=== PATIENT | male | born 1955 | race Caucasian/White ===

== ENCOUNTER 2022-11-25 18:11 | Inpatient (IN) | payer MEDICARE, BC ==
[2022-11-25] MEDS ORDERED: Morphine 4 MG/ML VIAL SLOW IVP PRN ×2 (20:26→20:37)
[2022-11-25] MEDS ORDERED: Dextrose 50% Abboject 50 ML SYRINGE SLOW IVP PRN (20:26)
[2022-11-25] MEDS ORDERED: Ipratropium/Albuterol 3 ML NEB NEB PRN (20:26)
[2022-11-25] MEDS ORDERED: Ondansetron ODT 4 MG TAB PO PRN (20:26)
[2022-11-25] MEDS ORDERED: hydrALAZINE 20 MG/ML VIAL SLOW IVP PRN (20:26)
[2022-11-25] MEDS ORDERED: Dextrose 5% in Water 1,000 ML IV PRN (20:26)
[2022-11-25] MEDS ORDERED: Ondansetron PF 4 MG/2 ML Vial IVP PRN (20:26)
[2022-11-25] MEDS ORDERED: Cyclobenzaprine 10 MG TAB PO PRN (20:29)
[2022-11-25] MEDS ORDERED: traMADol HCl 50 MG TAB PO PRN (20:29)
[2022-11-25] MEDS ORDERED: Sodium Chloride 0.9% 1,000 ML IV SCH (20:30)
[2022-11-25] MEDS ORDERED: Ibuprofen 200 MG TAB PO PRN (20:36)
[2022-11-25] MEDS: Acetaminophen 500 MG TAB PO SCH (21:11)
[2022-11-25] MEDS: Famotidine 20 MG TAB PO SCH (21:11)
[2022-11-25] MEDS: traMADol HCl 50 MG TAB PO SCH (21:11)
[2022-11-25] MEDS: Senokot S 8.6-50 MG TAB PO SCH (21:12)
[2022-11-25 21:14] VITALS: BMI 32.6
[2022-11-25 21:18] LABS: SARS-CoV-2 NAA Rapid Test Not Detected (NotDetected)
[2022-11-26] MEDS: Acetaminophen 500 MG TAB PO SCH ×2 (04:28→10:26)
[2022-11-26] MEDS: traMADol HCl 50 MG TAB PO SCH ×3 (04:28→23:48)
[2022-11-26 05:58] LABS: #Basophils 0.1 thou/uL (0.0-0.2); #Eosinphils 0.4 thou/uL (0.0-0.7); #Lymphocytes 2.4 thou/uL (1.20-3.40); #Neutrophils 4.7 thou/uL (1.40-6.50); %Eosinophils 4.3 % (0.0-10.0); %Lymphocytes 28.5 % (21.0-51.0); %Monocytes 11.4 % (0.0-10.0); %Neutrophils 54.8 % (42.0-75.0); Hemoglobin 15.8 g/dL (14.0-18.0); Mean Corpuscular HGB CONC 33.3 g/dL (32.0-36.0); Mean Corpuscular Hemoglobin 30.6 pg (27.0-31.0); Mean Corpuscular Volume 91.8 fl (78.0-98.0); Mean Platelet Volume 9.6 fL (7.4-10.4); Platelet Count 196 10x3/uL (130-400); Red Blood Cell (RBC) Count 5.17 mill/uL (4.70-6.10); White Blood Cell (WBC) Count 8.5 10x3/uL (4.8-10.8)
[2022-11-26 06:17] LABS: Phosphorus 3.1 mg/dL (2.3-4.7)
[2022-11-26 06:18] LABS: Anion Gap 10 mmol/L (10-20); BUN (Urea Nitrogen) 17 mg/dL (8.4-25.7); Calc. Creatinine Clearance 120 mL/min (70-130); Calcium 8.2 mg/dL (7.8-10.44); Carbon Dioxide 24 mmol/L (23-31); Chloride 108 mmol/L (98-107); Estimated GFR 92; Glucose 102 mg/dL (80-115); Magnesium 2.1 mg/dL (1.6-2.6); Potassium 3.3 mmol/L (3.5-5.1); Sodium 139 mmol/L (136-145)
[2022-11-26] MEDS ORDERED: CEFAZOLIN 2 GM in Sodium Chloride 0.9% 100 ML IVPB SCH (07:45)
[2022-11-26] MEDS ORDERED: Potassium Phosphate 30 MMOL in Sodium Chloride 0.9% 250 ML 250 ML IVPB SCH (09:15)
[2022-11-26] MEDS: Polyethylene Glycol 3350 17 GM Packet PO SCH (10:26)
[2022-11-26] MEDS: Famotidine 20 MG TAB PO SCH ×2 (10:26→19:59)
[2022-11-26] MEDS: Senokot S 8.6-50 MG TAB PO SCH ×2 (10:26→19:59)
[2022-11-26] MEDS ORDERED: Midazolam HCl 2 mg/2 ml Vial ONE (10:29)
[2022-11-26] MEDS ORDERED: Fentanyl 100 MCG/2 ML VIAL ONE (10:29)
[2022-11-26] MEDS ORDERED: Bupivacaine PF 0.5% 30 ML VIAL ONE (10:30)
[2022-11-26] MEDS ORDERED: Fentanyl 250 MCG/5 ML VIAL ONE (11:24)
[2022-11-26] MEDS ORDERED: Sodium Chloride 0.9% 100 ML ONE (11:36)
[2022-11-26] MEDS ORDERED: CEFAZOLIN 2 GM VIAL ONE (11:36)
[2022-11-26] MEDS ORDERED: PROPOFOL 200 MG/20 ML VIAL ONE (12:02)
[2022-11-26] MEDS ORDERED: Dexamethasone 20 MG/5 ML VIAL ONE (12:02)
[2022-11-26] MEDS ORDERED: Ondansetron PF 4 MG/2 ML Vial ONE (12:02)
[2022-11-26] MEDS ORDERED: Bupivacaine HCl 0.5%/Epinephrine 1:200,000/PF 30 ml Vial ONE (12:02)
[2022-11-26] MEDS ORDERED: Ondansetron PF 4 MG/2 ML Vial IVP PRN (12:15)
[2022-11-26] MEDS ORDERED: traMADol HCl 50 MG TAB PO PRN ×3 (12:15→15:37)
[2022-11-26] MEDS ORDERED: Zolpidem Tartrate 5 MG TAB PO PRN (12:15)
[2022-11-26] MEDS ORDERED: Ropivacaine 0.2% 550 ML 550 ML NERVE BLCK SCH (12:15)
[2022-11-26] MEDS ORDERED: HYDROcodone/Acetaminophen 10/325 mg Tablet PO PRN ×2 (12:15)
[2022-11-26] MEDS ORDERED: Fentanyl 100 MCG/2 ML VIAL SLOW IVP PRN (12:15)
[2022-11-26] MEDS ORDERED: Promethazine HCl 25 MG/ML VIAL IM PRN (12:15)
[2022-11-26] MEDS ORDERED: Meperidine HCl/PF 25 MG/ML VIAL ONE (13:15)
[2022-11-26] MEDS ORDERED: hydrALAZINE 20 MG/ML VIAL ONE (13:52)
[2022-11-26] MEDS ORDERED: Morphine 4 MG/ML VIAL SLOW IVP PRN (15:37)
[2022-11-26] MEDS ORDERED: traMADol HCl 50 MG TAB PO SCH (16:00)
[2022-11-26] MEDS: Ketorolac Tromethamine 30 MG/ML VIAL IVP SCH ×2 (18:41→23:48)
[2022-11-26] MEDS: CEFAZOLIN 2 GM in Sodium Chloride 0.9% 100 ML IVPB SCH (19:59)
[2022-11-26] MEDS ORDERED: Tamsulosin HCl 0.4 MG CAP PO SCH (21:00)
[2022-11-27] MEDS: CEFAZOLIN 2 GM in Sodium Chloride 0.9% 100 ML IVPB SCH (03:29)
[2022-11-27] MEDS: traMADol HCl 50 MG TAB PO SCH ×2 (05:26→11:04)
[2022-11-27] MEDS: Ketorolac Tromethamine 30 MG/ML VIAL IVP SCH ×2 (05:26→11:04)
[2022-11-27 06:09] LABS: #Lymphocytes 1.6 thou/uL (1.20-3.40); #Monocytes 1.1 thou/uL (0.11-0.59); #Neutrophils 11.6 thou/uL (1.40-6.50); %Basophils 0.1 % (0.0-1.0); %Eosinophils 0.2 % (0.0-10.0); %Lymphocytes 11.5 % (21.0-51.0); %Monocytes 7.5 % (0.0-10.0); %Neutrophils 80.8 % (42.0-75.0); Hemoglobin 15.6 g/dL (14.0-18.0); Mean Corpuscular HGB CONC 33.2 g/dL (32.0-36.0); Mean Corpuscular Hemoglobin 30.6 pg (27.0-31.0); Mean Corpuscular Volume 92.3 fl (78.0-98.0); Mean Platelet Volume 9.4 fL (7.4-10.4); Platelet Count 194 10x3/uL (130-400); RBC Distribution Width 12.9 % (11.5-14.5); Red Blood Cell (RBC) Count 5.11 mill/uL (4.70-6.10); White Blood Cell (WBC) Count 14.3 10x3/uL (4.8-10.8)
[2022-11-27 06:49] LABS: Anion Gap 11 mmol/L (10-20); BUN (Urea Nitrogen) 17 mg/dL (8.4-25.7); Calc. Creatinine Clearance 127 mL/min (70-130); Calcium 8.4 mg/dL (7.8-10.44); Carbon Dioxide 21 mmol/L (23-31); Chloride 108 mmol/L (98-107); Estimated GFR 94; Glucose 148 mg/dL (80-115); Magnesium 2.2 mg/dL (1.6-2.6); Phosphorus 2.4 mg/dL (2.3-4.7); Potassium 4.1 mmol/L (3.5-5.1); Sodium 136 mmol/L (136-145)
[2022-11-27] MEDS: Famotidine 20 MG TAB PO SCH (09:01)
[2022-11-27] MEDS: Senokot S 8.6-50 MG TAB PO SCH (09:02)
[2022-11-27] MEDS: Polyethylene Glycol 3350 17 GM Packet PO SCH (09:03)
[2022-11-27] MEDS ORDERED: PHOS-NAK 1 PKT PACK PO SCH (09:15)
[2022-11-27 12:36] VITALS: BP 115/71; TEMP 97.7
== END 2022-11-27 13:18 | disposition home or self-care (01) | DRG 494 ==
LOC: SJJU 18:53
PROVIDERS: ADMIT Orthopaedic Surgery; ATTEND Surgery
PROC: 0QSG04Z Reposition Right Tibia with Internal Fixation Device, Open Approach (ICD-10-PCS; principal; 2022-11-26)
DX: S82.851A Displaced trimalleolar fracture of right lower leg, initial encounter for closed fracture (principal); Z20.822 Contact with and (suspected) exposure to COVID-19; I10 Essential (primary) hypertension; F17.210 Nicotine dependence, cigarettes, uncomplicated; W18.39XA Other fall on same level, initial encounter; N40.1 Benign prostatic hyperplasia with lower urinary tract symptoms; R33.8 Other retention of urine; Z91.041 Radiographic dye allergy status; Z79.899 Other long term (current) drug therapy
CPT/HCPCS: 36415; 80048; 83735; 84100; 85025; A4306; C1713; G0390; J0360; J1100; J1650; J2175; J2250; J2405; J2704; J2795; J3010; J3490; J7050; S0020; U0002

== ENCOUNTER 2023-09-21 14:00 | Inpatient (IN) | payer MEDICARE, BC ==
[2023-09-21 14:34] VITALS: BMI 32.0
[2023-09-21 14:49] LABS: Hematocrit 54.2 % (38.8-50.0); Hemoglobin 18.7 g/dL (13.5-17.5); Mean Corpuscular HGB CONC 34.5 g/dL (32.0-36.0); Mean Corpuscular Hemoglobin 30.4 pg (27.0-33.0); Mean Platelet Volume 11.3 fl (7.4-10.4); Platelet Count 209 10x3/uL (150-450); RBC Distribution Width 14.1 % (11.5-14.5); Red Blood Cell (RBC) Count 6.16 10x6/uL (4.32-5.72); White Blood Cell (WBC) Count 7.9 10x3/uL (3.5-10.5)
[2023-09-21 15:07] LABS: Anion Gap 16 mmol/L (10-20); BUN (Urea Nitrogen) 14 mg/dL (8.4-25.7); Calc. Creatinine Clearance 0 mL/min (70-130); Carbon Dioxide 21 mmol/L (23-31); Chloride 107 mmol/L (98-107); Estimated GFR 91; Glucose 99 mg/dL (80-115); Potassium 3.5 mmol/L (3.5-5.1); Sodium 140 mmol/L (136-145)
[2023-09-23] MEDS ORDERED: predniSONE 50 MG TAB PO SCH (08:15)
[2023-09-23] MEDS ORDERED: diphenhydrAMINE 50 MG CAP PO SCH (08:15)
[2023-09-23] MEDS ORDERED: Dexamethasone 4 mg/ml Vial ONE (08:19)
[2023-09-23] MEDS ORDERED: EPINEPHrine 1 MG/ML VIAL ONE (08:19)
[2023-09-23] MEDS ORDERED: Heparin 10,000 UNITS/ 10 ML VIAL ONE (08:19)
[2023-09-23] MEDS ORDERED: Protamine Sulfate 50 MG/5 ML VIAL ONE ×2 (08:19→10:47)
[2023-09-23] MEDS ORDERED: Bupivacaine PF 0.5% 30 ML VIAL ONE (08:20)
[2023-09-23] MEDS ORDERED: Lidocaine 2% PF 5 ML VIAL ONE (08:34)
[2023-09-23] MEDS ORDERED: Sodium Chloride 0.9% 100 ML ONE (08:36)
[2023-09-23] MEDS ORDERED: CEFAZOLIN 2 GM VIAL ONE (08:36)
[2023-09-23] MEDS ORDERED: fentaNYL PF 100 MCG/2 ML SYRINGE ONE (08:48)
[2023-09-23] MEDS ORDERED: Phenylephrine 40 MG/NS 250 ML 250 ML ONE (08:49)
[2023-09-23] MEDS ORDERED: Glycopyrrolate 0.2 MG/ML 5 ML SYRINGE ONE (09:12)
[2023-09-23] MEDS ORDERED: PROPOFOL 200 MG/20 ML VIAL ONE (09:12)
[2023-09-23] MEDS ORDERED: NEOSTIGMINE 3 MG/3 ML SYR 3 MG/3 ML SYRINGE ONE (09:12)
[2023-09-23] MEDS ORDERED: Rocuronium Bromide 10 MG/ML (10ML VIAL) ONE (09:12)
[2023-09-23] MEDS ORDERED: Lidocaine 1% PF 5 ML VIAL ONE (09:12)
[2023-09-23] MEDS ORDERED: Dexamethasone 20 MG/5 ML VIAL ONE (09:12)
[2023-09-23] MEDS ORDERED: Ondansetron HCl/PF 4 MG/2 ML Vial IVP PRN (10:45)
[2023-09-23] MEDS ORDERED: PACU-Morphine 4MG/ML VIAL SLOW IVP PRN (10:45)
[2023-09-23] MEDS ORDERED: HYDROmorphone 2 MG/ML VIAL SLOW IVP PRN (10:45)
[2023-09-23] MEDS ORDERED: Promethazine HCl 25 MG/ML VIAL IM PRN (10:45)
[2023-09-23] MEDS ORDERED: fentaNYL 50 mcg/mL 1 mL Vial ONE (11:34)
[2023-09-23] MEDS ORDERED: hydrALAZINE 20 MG/ML VIAL ONE ×2 (11:35→16:31)
[2023-09-23] MEDS ORDERED: hydrALAZINE 20 MG/ML VIAL SLOW IVP PRN (11:55)
[2023-09-23] MEDS ORDERED: traMADol HCl 50 MG TAB PO PRN ×2 (11:55)
[2023-09-23] MEDS ORDERED: Ipratropium/Albuterol 3 ML NEB NEB PRN (11:55)
[2023-09-23] MEDS ORDERED: Acetaminophen 325 MG TAB PO PRN (11:55)
[2023-09-23] MEDS ORDERED: Ondansetron PF 4 MG/2 ML Vial IVP PRN (11:55)
[2023-09-23] MEDS: CEFAZOLIN 2 GM in Sodium Chloride 0.9% 100 ML IVPB SCH ×2 (16:58→22:59)
[2023-09-23] MEDS ORDERED: Tamsulosin HCl 0.4 MG CAP PO SCH (21:00)
[2023-09-24 07:01] LABS: Hematocrit 46.9 % (42.0-52.0); Hemoglobin 15.9 g/dL (14.0-18.0); Mean Corpuscular HGB CONC 33.9 g/dL (32.0-36.0); Mean Corpuscular Hemoglobin 30.5 pg (27.0-31.0); Red Blood Cell (RBC) Count 5.21 mill/uL (4.70-6.10); White Blood Cell (WBC) Count 12.8 10x3/uL (4.8-10.8)
[2023-09-24 07:02] LABS: #Monocytes 1.2 thou/uL (0.11-0.59); #Neutrophils 9.2 thou/uL (1.40-6.50); %Basophils 0.2 % (0.0-1.0); %Eosinophils 0.1 % (0.0-10.0); %Lymphocytes 18.1 % (21.0-51.0); %Monocytes 9.5 % (0.0-10.0); %Neutrophils 71.7 % (42.0-75.0); Mean Platelet Volume 11.6 fL (7.4-10.4); Platelet Count 210 10x3/uL (130-400); RBC Distribution Width 14.2 % (11.5-14.5)
[2023-09-24 07:14] VITALS: BP 123/64
[2023-09-24] MEDS ORDERED: Lisinopril 20 MG TAB PO SCH (07:30)
[2023-09-24] MEDS ORDERED: Hydrochlorothiazide 25 MG TAB PO SCH (07:30)
[2023-09-24 07:40] LABS: Anion Gap 14 mmol/L (10-20); BUN (Urea Nitrogen) 31 mg/dL (8.4-25.7); Calc. Creatinine Clearance 84 mL/min (70-130); Calcium 8.5 mg/dL (7.8-10.44); Carbon Dioxide 21 mmol/L (23-31); Chloride 108 mmol/L (98-107); Estimated GFR 63; Glucose 123 mg/dL (80-115); Potassium 3.3 mmol/L (3.5-5.1); Sodium 140 mmol/L (136-145)
[2023-09-24] MEDS: CEFAZOLIN 2 GM in Sodium Chloride 0.9% 100 ML IVPB SCH (08:03)
[2023-09-24] MEDS ORDERED: Aspirin 81 mg Enteric Coated Tablet PO SCH (09:00)
[2023-09-24 12:44] VITALS: TEMP 100
[2023-09-26] MEDS ORDERED: FLU VACC QS2023(65UP)/MF59C/PF 60 MCG/0.5 ML SYRINGE IM ONE (09:00)
== END 2023-09-24 09:55 | disposition home or self-care (01) | DRG 272 ==
LOC: SURG A 09-23 08:06 → IMCU/EMU 09-23 17:17
PROVIDERS: ADMIT Thoracic Surgery (Cardiothoracic Vascular Surgery); ATTEND Thoracic Surgery (Cardiothoracic Vascular Surgery)
PROC: 04VD3DZ Restriction of Left Common Iliac Artery with Intraluminal Device, Percutaneous Approach (ICD-10-PCS; principal; 2023-09-23)
DX: I72.3 Aneurysm of iliac artery (principal); Z79.899 Other long term (current) drug therapy; Z79.82 Long term (current) use of aspirin; I10 Essential (primary) hypertension; I73.9 Peripheral vascular disease, unspecified; Z98.890 Other specified postprocedural states; Z91.041 Radiographic dye allergy status
CPT/HCPCS: 36415; 80048; 85025; 85027; 86850; 86900; 86901; C1726; C1769; C1887; C1889; J0171; J0360; J1100; J1642; J1644; J2001; J2704; J2720; J3010; J3490; S0020

== ENCOUNTER 2023-09-21 14:04 | Outpatient (CLI) | payer MEDICARE, OTHER | END 2023-09-21 14:05 | disposition home or self-care (01) | LOC: LABBT 14:04 | PROVIDERS: ATTEND Thoracic Surgery (Cardiothoracic Vascular Surgery) | DX: Z01.810 Encounter for preprocedural cardiovascular examination (principal) | CPT/HCPCS: 93005; 93010 ==

== ENCOUNTER 2023-10-10 11:45 | Outpatient (CLI) | payer BC | END 2023-10-10 11:46 | disposition home or self-care (01) | LOC: BICCT 11:45 | PROVIDERS: ATTEND Urology | DX: N20.0 Calculus of kidney (principal); Z95.828 Presence of other vascular implants and grafts | CPT/HCPCS: 74176 ==

== ENCOUNTER 2024-01-25 09:01 | Outpatient (CLI) | payer MEDICARE, BC ==
[2024-01-25] MEDS ORDERED: Iopamidol 370 76% 100 ML VIAL ONE (13:01)
== END 2024-01-25 09:02 | disposition home or self-care (01) ==
LOC: CT 09:01
PROVIDERS: ATTEND Thoracic Surgery (Cardiothoracic Vascular Surgery)
DX: I72.3 Aneurysm of iliac artery (principal); Z95.828 Presence of other vascular implants and grafts
CPT/HCPCS: 74174; 82565; Q9967